=== PATIENT | female | born 1960 | race Caucasian/White ===

== ENCOUNTER 2016-09-30 23:04 | Emergency (ER) | payer OTHER ==
[~2016-09-30] VITALS: Ht 160 cm; Wt 77.1 kg
[2016-09-30 23:08] VITALS: BP 111/75
--- NOTE | 2016-09-30 23:36 | ED SKIN/ALLERGY COMPLAINT ---
History of Present Illness General Chief Complaint: Allergy Symptoms Stated Complaint: ALLERGIC REACTION Source: patient, old records Exam Limitations: no limitations Vital Signs & Intake/Output Vital Signs & Intake/Output Vital Signs Date Time Temp Pulse Resp B/P Pulse O2 O2 Flow FiO2 Ox Delivery Rate 09/30 2308 97.8 85 18 111/75 99 Room Air Allergies Coded Allergies: azithromycin (From ZITHROMAX) (HIVES 09/30/16) Reconcile Medications Methylprednisolone. (Medrol) 4 MG TAB.DS.PK 1 DP PO AD urticaria 6 on day 1 then reduce by one tablet daily until gone Ondansetron (Zofran Odt) 4 MG TAB.RAPDIS 1 TAB SL TID PRN nausea Triage Note: PT TO ED C/O RASH TO FACE, NECK, SHOULDERS, LEGS, HANDS FOR 5 DAYS. PMH OF CHRONIC UTICARIA. NO NEW MEDS/FOODS/LOTIONS. "BIG HIVE" TO RT THIGH. O2 SAT 99% ON RA. 25 MG BENADRYL AT 1630 LAST ZYRTEC AT 1730 WITH NO RELIEF Triage Nurses Notes Reviewed? yes Onset: Abrupt Duration: day(s): (4), constant Timing: recent history Severity: moderate Severity Numbers: 6 Location: extremities Possible Factors: no cause identified No Modifying Factors: none Associated Symptoms: DENIES HPI: 56-year-old female presents emergency room for evaluation complaining of generalized hives to her extremities and trunk for the past 4 days. Patient reports history of similar symptoms in the past and was diagnosed with chronic urticaria. She took a Benadryl and Zyrtec tonight without improvement. She denies any known exposures to any possible allergens no difficulty breathing no difficulty swallowing. She denies any sick contacts or symptoms no recent travel. There are no modifying factors or associated symptoms otherwise. She denies any chest pain shortness of breath nausea vomiting or diarrhea. Past History Travel History Traveled to [place] past 21 day No Medical History Any Pertinent Medical History? see below for history Cardiovascular: hyperlipidemia Gastrointestinal: GERD Psychiatric: anxiety, depression Surgical History Surgical History: non-contributory Psychosocial History What is your primary language Bermudian Tobacco Use: Never used ETOH Use: denies use Illicit Drug Use: denies illicit drug use Family History Hx Contributory? No Review of Systems Review of Systems Constitutional: Reports: see HPI. All Other Systems: Reviewed and Negative Comments Review of systems: See HPI, All other systems negative. Constitutional, no chills no fever, no malaise HEENT: No visual changes no sore throat no congestion, Cardiovascular: No chest pain , no palpitation Skin, SEE HPI Respiratory: No dyspnea no cough no sputum GI: No nausea no vomiting, no diarrhea, : No dysuria Muscle skeletal: No joint pain,, no back pain, no neck pain, Neurologic: No numbness no headache Psych: No stress Heme/endocrine: No bruising no bleeding Immunology: No lymphadenopathy Physical Exam Physical Exam General Appearance: well developed/nourished, alert, awake, comfortable Comments: Well-developed well-nourished person in no acute distress HEENT: Normal EENT exam; PERRL, EOMI, HEAD is atraumatic. moist mucous membranes. Pharynx within normal limits no uvula displacement trismus or stridor Neck: Supple, normal range of motion Back: Nontender, . Full range of motion Cardiovascular: Regular rate and rhythms no murmurs rubs Respiratory: Chest nontender.There were no bony deformities, no asymmetry. No respiratory distress. Patient speaking in full complete sentences. Breath sounds clear to auscultation bilaterally: NO W/R/R Abdomen: Soft, nontender nondistended, no appreciable organomegaly. Normal bowel sounds. No rebound/guarding, Extremity: No edema, full range of motion of extremities Neuro: Alert oriented x3, motor sensory normal, There were no obvious focal neurologic abnormalities. Skin: Macular rash noted to the bilateral upper extremities, no other rash noted exposed skin her face, skin is warm and dry. Psych: Mood and affect is normal, memory and judgment is normal. Progress Differential Diagnosis: abscess/cellulitis, anaphylaxis, contact dermatitis, drug reaction, erythema multiforme Plan of Care: Current Medications Sig/Vj Start time Last Medication Dose Stop Time Status Admin Ondansetron HCl 4 MG ONCE ONE 09/30 2344 UNVr (Zofran) 09/30 2345 Prednisone 60 MG ONCE ONE 09/30 2344 UNVr 09/30 2345 Patient medicated with prednisone advise close follow-up with primary care physician she clinically appears well and comfortable this plan cleared for discharge (SARAH ALFARO) Departure Departure Time of Disposition: 2342 Disposition: HOME OR SELF CARE Condition: Stable Clinical Impression Primary Impression: Urticaria Referrals: CLEMENCIA FRY,LADONNA GATES (PCP/Family) Additional Instructions: Medrol Dosepak as directed Zofran for nausea. Follow-up with your primary care physician on Sunday return with any concerns Departure Forms: Customer Survey General Discharge Information Prescriptions: Current Visit Scripts Methylprednisolone. (Medrol) 1 DP PO AD #1 DP 6 on day 1 then reduce by one tablet daily until gone Ondansetron (Zofran Odt) 1 TAB SL TID PRN nausea #10 TAB
[2016-09-30] MEDS ORDERED: MEDROL4 M2 PO (23:44)
[2016-09-30] MEDS ORDERED: ZOFRAN ODT4 M1 SL (23:44)
[2016-10-01] MEDS ORDERED: OMEPRAZOLE40 M1 PO (00:02)
[2016-10-01] MEDS ORDERED: ALPRAZOLAM0.5 M4 PO (00:02)
[2016-10-01] MEDS ORDERED: ESCITALOPRAM OX20 MG PO (00:03)
[2016-10-01] MEDS ORDERED: ATORVASTATIN CA20 M1 PO (00:03)
[2016-10-01] MEDS ORDERED: GABAPENTIN300 M2 PO (00:03)
[2016-10-01] MEDS ORDERED: SEROQUEL XR150 M1 PO (00:03)
== END 2016-10-01 00:05 ==
LOC: ERH 23:04
DX: L50.9 Urticaria, unspecified (principal)
CPT/HCPCS: J3101

== ENCOUNTER 2018-06-01 19:11 | Emergency (ER) | payer OTHER ==
[~2018-06-01 19:11] MED LIST: ALPRAZOLAM0.5 M4 PO; ATORVASTATIN CA20 M1 PO; ESCITALOPRAM OX20 MG PO; GABAPENTIN300 M2 PO; MEDROL4 M2 PO; OMEPRAZOLE40 M1 PO; SEROQUEL XR150 M1 PO; ZOFRAN ODT4 M1 SL
[2018-06-01 19:20] VITALS: BP 118/70
--- NOTE | 2018-06-01 19:38 | ED GENERAL ADULT ---
History of Present Illness General Chief Complaint: General Adult Stated Complaint: POSSIBLE EXPOSURE TO RABID CAT Source: patient Exam Limitations: no limitations Vital Signs & Intake/Output Vital Signs & Intake/Output Vital Signs Date Time Temp Pulse Resp B/P B/P Pulse O2 O2 Flow FiO2 Mean Ox Delivery Rate 06/01 1920 97.0 80 20 118/70 98 Allergies Coded Allergies: azithromycin (From ZITHROMAX) (HIVES 09/30/16) Reconcile Medications Alprazolam 0.5 MG TABLET 1 TAB PO TIDPRN ANXIETY (Reported) Atorvastatin Calcium 20 MG TABLET 1 TAB PO DAILY CHOLESTEROL (Reported) Escitalopram Oxalate 20 MG TABLET 1 TAB PO DAILY (Reported) Gabapentin 300 MG CAPSULE 1 CAP PO TID NEUROPATHY (Reported) Methylprednisolone. (Medrol) 4 MG TAB.DS.PK 1 DP PO AD urticaria 6 on day 1 then reduce by one tablet daily until gone Omeprazole 40 MG CAPSULE.DR 1 CAP PO DAILY GERD (Reported) Ondansetron (Zofran Odt) 4 MG TAB.RAPDIS 1 TAB SL TID PRN nausea Quetiapine Fumarate (Seroquel XR) 150 MG TAB.ER.24H 1 TAB PO QPM MENTAL HEALTH / MOOD (Reported) Triage Note: PER PT TOLD TONIGHT THAT A CAT SHE GROOMED 2 MONTHS AGO(MARCH) HAS A % CHANCE OF RABIES TOLD TO COME IN Triage Nurses Notes Reviewed? yes Onset: Abrupt Duration: day(s): Timing: recent history Injury Environment: home HPI: 58-year-old female comes into the emergency room for further evaluation after being scratched by a cat 2 months ago that she was grooming. Reportedly the rn office of the cat called her because the cat developed an infection on its leg that was potentially from a bites and was a few months behind its rabies vaccine. The cat is not acting abnormally. She had been scratched 2 months ago. (Sean Olmos) Past History Travel History Traveled to [place] past 21 day No Medical History Any Pertinent Medical History? see below for history Neurological: NONE EENT: NONE Cardiovascular: hyperlipidemia Respiratory: NONE Gastrointestinal: GERD Hepatic: NONE Renal: NONE Musculoskeletal: NONE Psychiatric: anxiety, depression Endocrine: AUTOIMMUNE UTICARIA Surgical History Surgical History: non-contributory Psychosocial History What is your primary language Bulgarian Tobacco Use: Never used Family History Hx Contributory? No (Sean Olmos) Review of Systems Review of Systems Constitutional: Reports: no symptoms. EENTM: Reports: no symptoms. Respiratory: Reports: no symptoms. Cardiovascular: Reports: no symptoms. GI: Reports: no symptoms. Genitourinary: Reports: no symptoms. Musculoskeletal: Reports: no symptoms. Skin: Reports: no symptoms. Neurological/Psychological: Reports: no symptoms. Hematologic/Endocrine: Reports: no symptoms. Immunologic/Allergic: Reports: no symptoms. All Other Systems: Reviewed and Negative (Sean Olmos) Physical Exam Physical Exam General Appearance: well developed/nourished, alert Head: atraumatic Eyes: Bilateral: normal appearance. Ears, Nose, Throat: normal ENT inspection Neck: normal inspection Respiratory: no respiratory distress Back: normal range of motion Neurologic/Psych: awake, alert Skin: intact, normal color Core Measures ACS in differential dx? No CVA/TIA Diagnosis: No Sepsis Present: No Sepsis Focused Exam Completed? No (Sean Olmos) Progress Differential Diagnoses I considered the following diagnoses in my evaluation of the patient: Rabies, Plan of Care: 06/01/2018 8:47:55 PM Due to the fact of the patient has received rabies post exposure prophylaxis in the past she only needs a vaccine booster on day 0 and 3. Initial ED EKG: none (Sean Olmos) Departure Departure Disposition: HOME OR SELF CARE Condition: Stable Clinical Impression Primary Impression: Need for post exposure prophylaxis for rabies Referrals: Wendy FRY,Patricia Kearney (PCP/Family) Additional Instructions: Return today 3 for rabies vaccine. Return if any other concerns. Please go over all results of today's visit with your primary care doctor. Contact your primary care doctor to let them know you were here in the emergency room. There may be nonspecific findings which may not be related to your visit today here in the emergency room but may require further evaluation and chronic monitoring by your primary care doctor. If you had a laceration today the chance of foreign body always remains. You should follow-up with your primary care doctor for recheck in 3-5 days for a wound check. If you had an x-ray done there is a chance that a fracture could have been missed on initial read and you should follow-up with your primary care doctor for repeat x-rays if symptoms persist. If your blood pressure was elevated here in the emergency room please have rechecked by hyour primary care doctor within the next 48. If you were prescribed a narcotic here in the emergency room or any type of controlled substances you're not allowed to drive while taking this medication or operate any type of heavy machinery. Narcotics can make you feel lightheaded dizziness nausea and can cause constipation. You may need to moss picker a stool softener. Thank you for choosing [facility] emergency room. Please return to the emergency room immediately if you have any other concerns worsening of symptoms. Departure Forms: Customer Survey General Discharge Information (Sean Olmos) PA/COMMUNITY DEVELOPMENT TECHNICIAN Co-Sign Statement Statement: ED Attending supervision documentation- I saw and evaluated the patient. I have also reviewed all the pertinent lab results and diagnostic results. I agree with the findings and the plan of care as documented in the PA's/COMMUNITY DEVELOPMENT TECHNICIAN's documentation. x I have reviewed the ED Record and agree with the PA's/COMMUNITY DEVELOPMENT TECHNICIAN's documentation. [] Additions or exceptions (if any) to the PAs/COMMUNITY DEVELOPMENT TECHNICIAN's note and plan are summarized below: [] (Adal FRY,Travis) Critical Care Note Critical Care Note Critical Care Time: non-applicable (Sean Olmos)
== END 2018-06-01 20:06 ==
LOC: ERH 19:11
DX: Z23 Encounter for immunization (principal); Z20.3 Contact with and (suspected) exposure to rabies; E78.5 Hyperlipidemia, unspecified; K21.9 Gastro-esophageal reflux disease without esophagitis; F41.9 Anxiety disorder, unspecified
CPT/HCPCS: 90471